=== PATIENT | male | born 1995 | race Caucasian/White ===

== ENCOUNTER 2021-05-23 16:03 | Emergency (ER) | payer BC, OTHER ==
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
== END 2021-05-23 17:56 | disposition home or self-care (01) ==
LOC: JP.ED 16:03
DX: S30.1XXA Contusion of abdominal wall, initial encounter (principal); S80.12XA Contusion of left lower leg, initial encounter; V49.10XA Passenger injured in collision with unspecified motor vehicles in nontraffic accident, initial encounter
CPT/HCPCS: 36415; 73590-26-LT; 73590-LT; 74176; 80048; 85025; 99282; 99285-25